=== PATIENT | female | born 1940 | race Caucasian/White ===

== ENCOUNTER 2018-08-17 07:49 | Inpatient (IN) | payer MEDICARE ==
[~2018-08-17] VITALS: Ht 152.4 cm; Wt 57.2 kg
--- NOTE | ~2018-08-17 | MORECARE ---
CASE MANAGEMENT DISCHARGE SUMMARY PATIENT: SEYMOUR AMIN UNIT: [id number] ADM DATE: 08/17/18 AGE: 78 : 41 SEX: F ROOM/BED: D.2229 AUTHOR: LUBNA ADAMS PHYSICIAN: REFERRING PHYSICIAN: TANIKA ERAZO MD DATE OF SERVICE: 08/20/18 Discharge Plan Patient Name: SEYMOUR AMIN Facility: [facility]:[place] : 1940 Planned Disposition: Home Anticipated Discharge Date: Discharge Date: Expected LOS: Initial Reviewer: [id number] Initial Review Date: 08/19/2018 Generated: 08/20/18 5:32 pm Comments DCP- Discharge Planning Updated by [email or web address]: Danelle Lauren on 08/20/18 3:[address] Patient Name: SEYMOUR AMIN Encounter No: [id number] : 1940 Primary Insurance: [facility] MEDICARE SOLUTIONS Anticipated DC Date: Planned Disposition: Home External Planned Provider: : DCP follow-up note: Patient and family in agreement with discharge plan. Daughter is at bedside and agrees with discharge. She will take her home to [facility]. Declines need for HHS. No changes to plan. Case management will follow and assist as needed. Danelle Lauren DCP- Discharge Planning Updated by [email or web address]: Danelle Tenoriodarwin on 08/19/18 8:[address] Patient Name: SEYMOUR AMIN Admission Status: ER Accout number: [id number] Admission Date: 08-17-2018 : 1940 Admission Diagnosis: Attending: TANIKA ERAZO Current LOS: 2 Anticipated DC Date: Planned Disposition: Home Primary Insurance: [employer] MEDICARE SOLUTIONS Discharge Planning Comments: CM met with patient to discuss discharge planning, she is alone in the room. She states she lives at [facility]. States she is independent with all ADL's. States she does not have any DME at home or need any DME. States she does not drive, she takes the [employer] bus that stops at [facility] when she needs to go somewhere. States she also has 4 children and her brother that will help her. States "my children are all good and help me when I need help." States her daughter, Eden, will take her to [place] on discharge. States she will be moving from there as soon as she can get packed and will be moving in with her daughter. No needs identified at this time. CM will continue to follow and assist with discharge planning/needs. Brake Tester: Danelle Tenoriodarwin DCPIA - Discharge Planning Initial Assessment Updated by [id number]: Danelle Aguilar on 08/19/18 9:39 am * Is the patient Alert and Oriented? Yes * How many steps to enter\\exit or inside your home? 0/0 * PCP Francisco Arteaga APN for Dr. Watt * Pharmacy [facility] on [address] * Preadmission Environment Home Alone * ADLs Independent * Equipment None * List name and contact numbers for known caregivers / representatives who currently or will assist patient after discharge: Eden Sanchez - daughter - [phone] * Verbal permission to speak to the caregivers and representatives has been obtained from the patient. Yes * Community resources currently utilized None * Additional services required to return to the preadmission environment? No * Can the patient safely return to the preadmission environment? Yes * Has this patient been hospitalized within the prior 30 days at any hospital? No Coverage Notice Reviewer: [id number] - Danelle Aguilar Notice Issued Date-Time: 08/20/2018 16:27 Notice Type: IM Discharge Notice Notice Delivered To: Patient Relationship to Patient: Self Bell Maker Name: Delivery Method: HAND - Hand Delivered Milly Days: Prior Verbal Notification: Recipient Understood Notice: Yes Recipient Signature: Yes Med Rec Note Co-signed by Attending: Coverage Notice Comment: IMM explained, signed, copy given, original placed in MR Last DP export: 08/19/18 8:44 a Patient Name: SEYMOUR AMIN Page 03861 at 1633 All edits/amendments must be made on the electronic document DICTATION DATE: 08/20/181631 MATCHBOOK MAKER: TIMO 08/20/181631 RPT#: [id number] DC DATE: STATUS: ADM IN [facility] [address] [place] [address] END OF REPORT
--- NOTE | ~2018-08-17 | MORECARE ---
CASE MANAGEMENT DISCHARGE SUMMARY PATIENT: SEYMOUR AMIN UNIT: [id number] ADM DATE: 08/17/18 AGE: 78 : 41 SEX: F ROOM/BED: D.2229 AUTHOR: LUBNA ADAMS PHYSICIAN: REFERRING PHYSICIAN: TANIKA ERAZO MD DATE OF SERVICE: 08/21/18 Discharge Plan Patient Name: SEYMOUR AMIN Facility: [facility]:[place] : 1940 Planned Disposition: Home Anticipated Discharge Date: Discharge Date: 08/20/2018 Expected LOS: 0 Initial Reviewer: [id number] Initial Review Date: 08/19/2018 Generated: 08/21/18 7:37 am DCP- Discharge Planning Updated by [id number]: Danelle Aguilar on 08/20/18 3:[address] Patient Name: SEYMOUR AMIN Encounter No: [id number] : 1940 Primary Insurance: [facility] MEDICARE SOLUTIONS Anticipated DC Date: Planned Disposition: Home External Planned Provider: : DCP follow-up note: Patient and family in agreement with discharge plan. Daughter is at bedside and agrees with discharge. She will take her home to [facility]. Declines need for HHS. No changes to plan. Case management will follow and assist as needed. Danelle Lauren DCP- Discharge Planning Updated by [email or web address]: Danelle Aguilar on 08/19/18 8:[address] Patient Name: SEYMOUR AMIN Admission Status: ER Accout number: [id number] Admission Date: 08-17-2018 : 1940 Admission Diagnosis: Attending: TANIKA ERAZO Current LOS: 2 Anticipated DC Date: Planned Disposition: Home Primary Insurance: [employer] MEDICARE SOLUTIONS Discharge Planning Comments: CM met with patient to discuss discharge planning, she is alone in the room. She states she lives at [facility]. States she is independent with all ADL's. States she does not have any DME at home or need any DME. States she does not drive, she takes the city bus that stops at [facility] when she needs to go somewhere. States she also has 4 children and her brother that will help her. States "my children are all good and help me when I need help." States her daughter, Eden, will take her to [facility] on discharge. States she will be moving from there as soon as she can get packed and will be moving in with her daughter. No needs identified at this time. CM will continue to follow and assist with discharge planning/needs. Education Courses Sales Representative: Danelle Lauren DCPIA - Discharge Planning Initial Assessment Updated by [email or web address]: Danelle Aguilar on 08/19/18 9:39 am * Is the patient Alert and Oriented? Yes * How many steps to enter\\exit or inside your home? 0/0 * PCP Francisco Arteaga APN for Dr. Wtat * Pharmacy [facility] [address] * Preadmission Environment Home Alone * ADLs Independent * Equipment None * List name and contact numbers for known caregivers / representatives who currently or will assist patient after discharge: Eden Sanchez - daughter - [phone] * Verbal permission to speak to the caregivers and representatives has been obtained from the patient. Yes * Community resources currently utilized None * Additional services required to return to the preadmission environment? No * Can the patient safely return to the preadmission environment? Yes * Has this patient been hospitalized within the prior 30 days at any hospital? No Coverage Notice Reviewer: [id number] - Danelle Aguilar Notice Issued Date-Time: 08/20/2018 16:27 Notice Type: IM Discharge Notice Notice Delivered To: Patient Relationship to Patient: Self Budget Report Clerk Name: Delivery Method: HAND - Hand Delivered Milly Days: Prior Verbal Notification: Recipient Understood Notice: Yes Recipient Signature: Yes Med Rec Note Co-signed by Attending: Coverage Notice Comment: IMM explained, signed, copy given, original placed in MR Last DP export: 08/20/18 3:32 p Patient Name: SEYMOUR AMIN Page 74286 at 0637 All edits/amendments must be made on the electronic document DICTATION DATE: 08/21/18635 RECORDINGS LIBRARIAN: TIMO 08/21/18635 RPT#: [id number] DC DATE:08/20/18 STATUS: DIS IN [facility] [address] [place] [address] END OF REPORT
--- NOTE | ~2018-08-17 | MORECARE ---
CASE MANAGEMENT DISCHARGE SUMMARY PATIENT: SEYMOUR AMIN UNIT: [id number] ADM DATE: 08/17/18 AGE: 78 : 41 SEX: F ROOM/BED: D.2229 AUTHOR: LUBNA ADAMS PHYSICIAN: REFERRING PHYSICIAN: TANIKA ERAZO MD DATE OF SERVICE: 08/19/18 Discharge Plan Patient Name: SEYMOUR AMIN Facility: [facility]:[place] : 1940 Planned Disposition: Home Anticipated Discharge Date: Discharge Date: Expected LOS: Initial Reviewer: [email or web address] Initial Review Date: 08/19/2018 Generated: 08/19/18 10:44 am Comments DCP- Discharge Planning Updated by [email or web address]: Danelle Aguilar on 08/19/18 8:[address] Patient Name: SEYMOUR AMIN Admission Status: ER Accout number: [id number] Admission Date: 08-17-2018 : 1940 Admission Diagnosis: Attending: TANIKA ERAZO Current LOS: 2 Anticipated DC Date: Planned Disposition: Home Primary Insurance: [facility] MEDICARE SOLUTIONS Discharge Planning Comments: CM met with patient to discuss discharge planning, she is alone in the room. She states she lives at [facility]. States she is independent with all ADL's. States she does not have any DME at home or need any DME. States she does not drive, she takes the city bus that stops at [facility] when she needs to go somewhere. States she also has 4 children and her brother that will help her. States "my children are all good and help me when I need help." States her daughter, Eden, will take her to [facility] on discharge. States she will be moving from there as soon as she can get packed and will be moving in with her daughter. No needs identified at this time. CM will continue to follow and assist with discharge planning/needs. Cardiac Exercise Physiologist: Danelle Aguilar DCPIA - Discharge Planning Initial Assessment Updated by [email or web address]: Danelle Aguilar on 08/19/18 9:39 am * Is the patient Alert and Oriented? Yes * How many steps to enter\\exit or inside your home? 0/0 * PCP Francisco Arteaga APN for Dr. Watt * Pharmacy [facility] on [address] * Preadmission Environment Home Alone * ADLs Independent * Equipment None * List name and contact numbers for known caregivers / representatives who currently or will assist patient after discharge: Eden Sanchez - daughter - [phone] * Verbal permission to speak to the caregivers and representatives has been obtained from the patient. Yes * Community resources currently utilized None * Additional services required to return to the preadmission environment? No * Can the patient safely return to the preadmission environment? Yes * Has this patient been hospitalized within the prior 30 days at any hospital? No Last DP export: 08/19/18 8:38 a Patient Name: SEYMOUR AMIN Page 69635 at 0944 All edits/amendments must be made on the electronic document DICTATION DATE: 08/19/18943 MEDICAL COLLECTOR: TIMO 08/19/18943 RPT#: [id number] DC DATE: STATUS: ADM IN [facility] [address] [place] [address] END OF REPORT
--- NOTE | ~2018-08-17 | MORECARE ---
CASE MANAGEMENT DISCHARGE SUMMARY PATIENT: SEYMOUR AMIN UNIT: [id number] ADM DATE: 08/17/18 AGE: 78 : 41 SEX: F ROOM/BED: D.2229 AUTHOR: LUBAN ADAMS PHYSICIAN: REFERRING PHYSICIAN: TANIKA ERAZO MD DATE OF SERVICE: 08/19/18 Discharge Plan Patient Name: SEYMOUR AMIN [facility] [facility] 1940 Planned Disposition: Home Anticipated Discharge Date: Discharge Date: Expected LOS: Initial Reviewer: [email or web address] Initial Review Date: 08/19/2018 Generated: 08/19/18 10:38 am Patient Name: SEYMOUR AMIN Page 86429 at 0938 All edits/amendments must be made on the electronic document DICTATION DATE: 08/19/1837 VIDEO GAME DEVELOPER: TIMO 08/19/1837 RPT#: [id number] DC DATE: STATUS: ADM IN [facility] [address] [place] [address] END OF REPORT
--- NOTE | ~2018-08-17 | CN ---
PATIENT NAME:SEYMOUR AMIN MEDICAL RECORD: [id number] : [birth year] LOCATION:D.MS Marcial2229 ADMIT DATE: 08/17/18 ACCOUNT: [id number] CONSULTING PHYSICIAN: YANN DICKINSON MD REFERRING PHYSICIAN: TANIKA ERAZO MD DATE OF CONSULTATION: 08/18/2018 IDENTIFYING DATA: The patient is 78 years old and she is admitted to the hospital secondary to shortness of breath and some abdominal pain. I am consulted because the patient apparently is having some trouble with a neighbor whom she thinks is stealing from her. The patient apparently has some history of anxiety and depression, but she minimizes these and they are not very prominent during the interview, but the business with a neighbor is very aggravating to her. She is convinced that her neighbor picks the lock on her door, comes into her apartment and steals cigarettes, her purse, and a roast she left out on the cabinet. She has stolen various other things. She has called the police several times. She has spoken with the account support manager about changing her lock or doing something about the neighbor. She says the neighbors doing this because she would not share her cigarettes with her. She also says the neighbor is probably into some sort of black magic or jew because when she takes something she will leave something else in its place that is meaningless. For example, she took her purse and then left 3/4 with a purse with sitting in the shape of a triangle. The patient denies neurovegetative depressive symptoms. She says she has no past psychiatric history. She does not drink alcohol or use drugs. MENTAL STATUS EXAMINATION: The patient is awake, alert and oriented to person, place, time, and situation. Her mood is euthymic. Her affect is appropriate. Thought processes are goal directed. Memory, concentration, and abstraction abilities are mildly impaired and she denies that she would seek to harm herself or others including the neighbors. She is angry with and she denies psychotic symptoms. 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 PLAN: This case represents something of a dilemma. Assuming the patient's telling me the truth, she has no history of mental illness, but she has what is clearly a delusional fixation on the neighbor. Certainly it is possible the neighbor could be picking the lock and coming into her house and taking these things, but it is probably not very likely, especially since the patient says she does not know how the neighbor always knows when she is gone and that she has waited for her, but she never comes in the house when she is there. The whole thing just sounds so improbable that it is almost certainly delusional. With the exception of this business with the neighbor, the patient is not showing any significant psychotic symptoms. She is not showing any significant mental health symptoms either. She is perfectly appropriate about everything else. She denies a history of substance abuse, mental illness and if she is demented, it would be in the mild range and usually delusions of this type are associated with pretty advanced dementias. I suppose it is possible she is demented and this is just an early manifestation, but she just does not seem to be impaired significantly. She recalls things quickly, she handles her own bills, she rides the bus, does not get lost on the schedule, manages her own insurance, takes herself to appointments. She says she is not having trouble with any of these things and there is no one here to contradict her. Under CONSULT REPORT [id number] SEYMOUR AMIN mental status exam, she does reasonably well. At this point, she does not want any treatment nor does she think she needs it. I would simply say that unless she becomes a danger to herself or this neighbor that this is probably one of those situations where there is just not a lot that I can do about it. I do not think she would be at all open to taking an antipsychotic medication that I prescribed, although perhaps her primary care physician might have an easier time doing this and I would recommend a low dose of Trilafon, say 2 mg at bedtime. Also, an outpatient evaluation by a neuropsychologist might help with pinning down if she is indeed in the early stages of a dementia. Also, if there is other history that is missing or that she has missed represented to me that I can certainly change my formulation as to how I see the case, but at this point, I do not see evidence of gross dysfunction or acute dangerousness and I think that there is probably not much that can be done. Perhaps moving her to another [facility] development would be reasonable, but certainly [facility] is by far the nicest in town. TRANSINT:[id number] Voice Confirmation ID: [id number] DOCUMENT ID: [id number] YANN DICKINSON MD at 0946 CC: [id number] DICTATION DATE: 08/18/18 1214 CAR CLERK PULLMAN: 08/18/18 1303 ADM IN [facility] [address] [place] [address]
[2018-08-17 08:30] LABS: BASOPHILS 0.3 % (0-2); EOSINOPHILS 1.1 % (0-7); HEMATOCRIT 41.7 % (36.0-48.0); HEMOGLOBIN 14.2 g/dL (12-16); IMMATURE GRANULOCYTES 0.9 % (0-5); LYMPHOCYTES 21.6 % (15-50); MCH 31.5 pg (26.0-34.0); MCHC 34.1 g/dL (31.0-37.0); MCV 92.5 fL (80.0-100.0); MEAN PLATELET VOLUME 9.3 fL (7.4-10.4); NEUTROPHILS 67.1 % (40-80); PLATELET COUNT 394 10x3/uL (130-400); RBC 4.51 10x6/uL (4.00-5.40); RDW 12.9 % (11.5-14.5); WBC 15.2 10x3/uL (4.8-10.8)
[2018-08-17 08:44] LABS: ALBUMIN 3.6 g/dL (3.4-5.0); ANION GAP 14.2 mmol/L (8-16); BILIRUBIN - TOTAL 0.2 mg/dL (0.2-1.3); CALCIUM 9.7 mg/dL (8.5-10.1); CREATININE - SERUM 1.1 mg/dL (0.6-1.3); MAGNESIUM - SERUM 1.8 mg/dL (1.8-2.4); POTASSIUM - SERUM 3.2 mmol/L (3.5-5.1)
[2018-08-17 08:54] LABS: UDS - AMPHET NEGATIVE QUAL (NEGATIVE); UDS - BARB NEGATIVE QUAL (NEGATIVE); UDS - BENZO NEGATIVE QUAL (NEGATIVE); UDS - COCAINE NEGATIVE QUAL (NEGATIVE); UDS - OPIATE NEGATIVE QUAL (NEGATIVE); UDS - PCP NEGATIVE QUAL (NEGATIVE); UDS - THC NEGATIVE QUAL (NEGATIVE)
[2018-08-17 09:15] LABS: APPEARANCE CLEAR (CLEAR); BILIRUBIN NEGATIVE (NEGATIVE); COLOR YELLOW (YELLOW); EPITHELIAL CELLS 0-5 /hpf (0-5); GLUCOSE NEGATIVE (NEGATIVE); KETONE NEGATIVE (NEGATIVE); NITRITE NEGATIVE (NEGATIVE); PROTEIN NEGATIVE (NEGATIVE); RED CELLS - URINE 0-5 /hpf (0-5); UROBILINOGEN NORMAL (NORMAL); WHITE CELLS - URINE 0-5 /hpf (0-5)
[2018-08-17] MEDS ORDERED: TRAZODONE HCL100 MG (10:08)
[2018-08-17] MEDS ORDERED: ZITHROMAX250 MG (10:08)
[2018-08-17] MEDS ORDERED: MEDROL DOSE PACK4 MG (10:09)
[2018-08-17 11:04] VITALS: BP 148/58
[2018-08-17 15:32] VITALS: BP 100/81
[2018-08-17 15:38] VITALS: BP 137/52
[2018-08-17 20:50] VITALS: BP 133/63
[2018-08-18 01:20] VITALS: BP 131/63
[2018-08-18 05:28] VITALS: BP 163/76
[2018-08-18 06:52] LABS: BASOPHILS 0 % (0-2); EOSINOPHILS 0 % (0-7); HEMATOCRIT 36.6 % (36.0-48.0); HEMOGLOBIN 12.3 g/dL (12-16); IMMATURE GRANULOCYTES 0.9 % (0-5); LYMPHOCYTES 5.9 % (15-50); MCH 30.8 pg (26.0-34.0); MCHC 33.6 g/dL (31.0-37.0); MCV 91.7 fL (80.0-100.0); MEAN PLATELET VOLUME 9.4 fL (7.4-10.4); MONOCYTES 2.1 % (2-11); NEUTROPHILS 91.1 % (40-80); PLATELET COUNT 354 10x3/uL (130-400); RBC 3.99 10x6/uL (4.00-5.40); RDW 12.8 % (11.5-14.5); WBC 20.8 10x3/uL (4.8-10.8)
[2018-08-18 07:32] LABS: ALBUMIN 2.9 g/dL (3.4-5.0); BILIRUBIN - TOTAL 0.24 mg/dL (0.2-1.3); CALCIUM 9.1 mg/dL (8.5-10.1); CARBON DIOXIDE 27.7 mmol/L (21.0-32.0); CREATININE - SERUM 0.9 mg/dL (0.6-1.3); PROTEIN - SERUM 6.9 g/dL (6.4-8.2)
[2018-08-18 07:33] LABS: ANION GAP 10.8 mmol/L (8-16); POTASSIUM - SERUM 4.5 mmol/L (3.5-5.1)
[2018-08-18 08:37] VITALS: BP 154/75
[2018-08-18 13:07] VITALS: BP 118/69
[2018-08-18 14:38] VITALS: BMI 24.6
[2018-08-18 16:55] VITALS: BP 157/77
[2018-08-18 20:00] VITALS: BP 137/68
[2018-08-19 05:00] VITALS: BP 165/76
[2018-08-19 06:29] LABS: BASOPHILS 0.1 % (0-2); EOSINOPHILS 0 % (0-7); HEMATOCRIT 37.7 % (36.0-48.0); HEMOGLOBIN 12.5 g/dL (12-16); IMMATURE GRANULOCYTES 0.8 % (0-5); LYMPHOCYTES 8.9 % (15-50); MCH 30.9 pg (26.0-34.0); MCHC 33.2 g/dL (31.0-37.0); MCV 93.1 fL (80.0-100.0); MEAN PLATELET VOLUME 9.7 fL (7.4-10.4); MONOCYTES 6.5 % (2-11); NEUTROPHILS 83.7 % (40-80); PLATELET COUNT 428 10x3/uL (130-400); RBC 4.05 10x6/uL (4.00-5.40); RDW 13.3 % (11.5-14.5); WBC 26.4 10x3/uL (4.8-10.8)
[2018-08-19 06:53] LABS: ALBUMIN 3.3 g/dL (3.4-5.0); ANION GAP 13.9 mmol/L (8-16); BILIRUBIN - TOTAL 0.2 mg/dL (0.2-1.3); CALCIUM 9.5 mg/dL (8.5-10.1); CARBON DIOXIDE 25.7 mmol/L (21.0-32.0); CREATININE - SERUM 0.9 mg/dL (0.6-1.3); POTASSIUM - SERUM 4.6 mmol/L (3.5-5.1); PROTEIN - SERUM 7.1 g/dL (6.4-8.2)
[2018-08-19 08:51] VITALS: BP 170/91
[2018-08-19 14:50] VITALS: BP 107/47
[2018-08-19 16:48] VITALS: BP 164/71
[2018-08-19 18:42] LABS: CKMB 1.4 U/L (0.0-3.6); CREATINE KINASE 84 UL (21-215)
[2018-08-19 19:35] LABS: TROPONIN-I 0.016 ng/mL (0.000-0.060)
[2018-08-19 21:13] VITALS: BP 127/57
[2018-08-20] VITALS: BP 145/57
[2018-08-20 00:30] LABS: CREATINE KINASE 69 UL (21-215)
[2018-08-20 00:35] LABS: TROPONIN-I < 0.017 ng/mL (0.000-0.060)
[2018-08-20 05:00] VITALS: BP 143/86
[2018-08-20 06:09] LABS: BASOPHILS 0.1 % (0-2); EOSINOPHILS 1.2 % (0-7); HEMATOCRIT 38.7 % (36.0-48.0); HEMOGLOBIN 12.8 g/dL (12-16); IMMATURE GRANULOCYTES 1.2 % (0-5); LYMPHOCYTES 28.3 % (15-50); MCH 31.1 pg (26.0-34.0); MCHC 33.1 g/dL (31.0-37.0); MCV 93.9 fL (80.0-100.0); MEAN PLATELET VOLUME 9.2 fL (7.4-10.4); MONOCYTES 7.6 % (2-11); NEUTROPHILS 61.6 % (40-80); RBC 4.12 10x6/uL (4.00-5.40); RDW 13.5 % (11.5-14.5)
[2018-08-20 06:19] LABS: PLATELET COUNT 327 10x3/uL (130-400); WBC 11.3 10x3/uL (4.8-10.8)
[2018-08-20 06:40] LABS: ALBUMIN 3.1 g/dL (3.4-5.0); ALKALINE PHOSPHATASE 77 U/L (46-116); BILIRUBIN - TOTAL 0.25 mg/dL (0.2-1.3); CALC OSMOLALITY 284 mosm/kg (275-300); CALCIUM 9.1 mg/dL (8.5-10.1); CARBON DIOXIDE 29.5 mmol/L (21.0-32.0); CHLORIDE - SERUM 106 mmol/L (98-107); CKMB 1.2 U/L (0.0-3.6); CREATINE KINASE 59 UL (21-215); GLUCOSE 91 mg/dL (74-106); POTASSIUM - SERUM 4.5 mmol/L (3.5-5.1); PROTEIN - SERUM 6.9 g/dL (6.4-8.2); SODIUM 143 mmol/L (136-145); UREA NITROGEN 13 mg/dL (7-18); eGFR NON AFRICAN AMERICAN 57 mL/min (90-120)
[2018-08-20 06:41] LABS: ALT (SGPT) 30 U/L (10-68); TROPONIN-I < 0.017 ng/mL (0.000-0.060)
[2018-08-20 09:43] VITALS: Ht 152.4 cm; Wt 57.2 kg
[2018-08-20 09:57] VITALS: BP 146/74
[2018-08-20 12:48] VITALS: BP 138/72
[2018-08-20] MEDS ORDERED: ZITHROMAX500 MG PO (16:50)
[2018-08-20 17:08] VITALS: BP 139/76
== END 2018-08-20 18:14 | disposition home or self-care (01) | DRG 194 ==
LOC: D.ER 07:49 → D.MS 09:21 → D.SDCHOLD 08-18 17:07 → D.MS 08-18 17:11
PROVIDERS: Family Medicine; Internal Medicine Nephrology
DX: J18.9 Pneumonia, unspecified organism (principal); J90 Pleural effusion, not elsewhere classified; F17.203 Nicotine dependence unspecified, with withdrawal; G93.40 Encephalopathy, unspecified; F41.9 Anxiety disorder, unspecified; F29 Unspecified psychosis not due to a substance or known physiological condition; F43.29 Adjustment disorder with other symptoms; R00.0 Tachycardia, unspecified; I25.10 Atherosclerotic heart disease of native coronary artery without angina pectoris; E87.6 Hypokalemia; I73.9 Peripheral vascular disease, unspecified; N95.9 Unspecified menopausal and perimenopausal disorder

== ENCOUNTER 2018-09-09 14:49 | Inpatient (IN) | payer MEDICARE ==
[2018-09-09] VITALS (7 sets, daily range): BP systolic 91–152; BP diastolic 39–62
[~2018-09-09] VITALS: Ht 152.4 cm; Wt 70.3 kg
--- NOTE | ~2018-09-09 | MORECARE ---
CASE MANAGEMENT DISCHARGE SUMMARY PATIENT: SEYMOUR AMIN UNIT: [id number] ADM DATE: 09/09/18 AGE: 78 : 41 SEX: F ROOM/BED: D.0523 AUTHOR: LUBNA ADAMS PHYSICIAN: REFERRING PHYSICIAN: TAMMIE GAMBOA MD DATE OF SERVICE: 09/12/18 Discharge Plan Patient Name: SEYMOUR AMIN Facility: [facility]:[place] : 1940 Planned Disposition: Home Anticipated Discharge Date: 09/12/18 Discharge Date: 09/12/2018 Expected LOS: 3 Initial Reviewer: [email or web address] Initial Review Date: 09/12/2018 Generated: 09/12/18 6:26 pm Comments DCP- Discharge Planning Updated by [email or web address]: Farhan Reis on 09/12/18 4:[address] Patient Name: SEYMOUR AMIN Admission Status: ER Accout number: [id number] Admission Date: 09-09-2018 : 1940 Admission Diagnosis:URINARY TRACT INFECTION, SITE NOT SPECIFIED Attending: TAMMIE GAMBOA Current LOS: 3 Anticipated DC Date: 09-12-2018 Planned Disposition: Home Primary Insurance: [facility] MEDICARE SOLUTIONS Discharge Planning Comments: CM MET WITH PT IN ROOM TO DISCUSS DISCHARGE PLANNING AND NEEDS. PT REPORTS SHE WAS LIVING AT [facility] AND SOMEONE WAS STEALING FROM HER. PT LIVES ALONE BUT WILL BE MOVING IN AT HER DAUGTHERS TODAY AFTER DISCHARGE. PT REPORTS ALL OF HER THINGS HAVE BEEN MOVED TO HER DAUGHTERS HOME WHO WILL BE PICKING HER UP TODAY. PT WALKER WITH NO PROVIDER PREFERENCE. PT HAD NO OUTSIDE SERVICES ASSISTING IN THE HOME. CM DISCUSSED AVAILABILITY OF HOME HEALTH, REHAB SERVICES AND MEDICAL EQUIPMENT. PT DENIES DISCHARGE NEEDS, REPORTS HER DAUGHTER WILL PICK HER UP FOR DISCHARGE HOME. IMPORTANT MESSAGE FROM MEDICARE PROVIDED AND EXPLAINED. DISCHARGE ADDRESS IS ON [address] [place] WITH DAUGHTER, EZRA QUIROZ. NO DISCHARGE NEEDS NOTED. Disability Insurance Claim Examiner: Farhan Reis DCPIA - Discharge Planning Initial Assessment Updated by [id number]: Farhan Reis on 09/12/18 5:14 pm * Is the patient Alert and Oriented? Yes * How many steps to enter\exit or inside your home? NONE * PCP ADAM CULLEN APN [facility] * Pharmacy [facility] [address] * Preadmission Environment Home Alone * ADLs Independent * Equipment Walker * Other Equipment NO MEDICAL EQUIPMENT PROVIDER PREFERENCE * List name and contact numbers for known caregivers / representatives who currently or will assist patient after discharge: EZRA QUIROZ, DTR, * Verbal permission to speak to the caregivers and representatives has been obtained from the patient. N/A * Community resources currently utilized None * Please name any agencies selected above. NONE * Additional services required to return to the preadmission environment? No * Can the patient safely return to the preadmission environment? Yes * Has this patient been hospitalized within the prior 30 days at any hospital? Yes Coverage Notice Reviewer: [id number] Mumtaz Reis Notice Issued Date-Time: 09/12/2018 14:30 Notice Type: IM Discharge Notice Notice Delivered To: Patient Relationship to Patient: Bowling Ball Grader And Marker Name: Delivery Method: HAND - Hand Delivered Milly Days: Prior Verbal Notification: Recipient Understood Notice: Yes Recipient Signature: Yes Med Rec Note Co-signed by Attending: Coverage Notice Comment: Last DP export: 09/12/18 4:17 Patient Name: SEYMOUR AMIN Page 86766 at 1726 All edits/amendments must be made on the electronic document DICTATION DATE: 09/12/181724 COATING MACHINE OPERATOR HELPER: TIMO 09/12/181724 RPT#: [id number] DC DATE:09/12/18 STATUS: DIS IN [facility] [address] [place] [address] END OF REPORT
--- NOTE | ~2018-09-09 | MORECARE ---
CASE MANAGEMENT DISCHARGE SUMMARY PATIENT: SEYMOUR AMIN UNIT: [id number] ADM DATE: 09/09/18 AGE: 78 : 41 SEX: F ROOM/BED: D.[facility] AUTHOR: LUBNA ADAMS PHYSICIAN: REFERRING PHYSICIAN: TAMMIE GAMBOA MD DATE OF SERVICE: 09/12/18 Discharge Plan Patient Name: SEYMOUR AMIN Facility: [facility]:[place] : 1940 Planned Disposition: Home Anticipated Discharge Date: 09/12/18 Discharge Date: 09/12/2018 Expected LOS: 3 Initial Reviewer: [id number] Initial Review Date: 09/12/2018 Generated: 09/12/18 6:17 pm DCPIA - Discharge Planning Initial Assessment Updated by [id number]: Farhan Reis on 09/12/18 5:14 pm * Is the patient Alert and Oriented? Yes * How many steps to enter\exit or inside your home? NONE * PCP ADAM CULLEN APN [facility] * [facility] [address] * Preadmission Environment Home Alone * ADLs Independent * Equipment Walker * Other Equipment NO MEDICAL EQUIPMENT PROVIDER PREFERENCE * List name and contact numbers for known caregivers / representatives who currently or will assist patient after discharge: EZRA QUIROZ, DTR, * Verbal permission to speak to the caregivers and representatives has been obtained from the patient. N/A * Community resources currently utilized None * Please name any agencies selected above. NONE * Additional services required to return to the preadmission environment? No * Can the patient safely return to the preadmission environment? Yes * Has this patient been hospitalized within the prior 30 days at any hospital? Yes Coverage Notice Reviewer: [id number] - Farhan Reis Notice Issued Date-Time: 09/12/2018 14:30 Notice Type: IM Discharge Notice Notice Delivered To: Patient Relationship to Patient: Director Of Dementia Operations Name: Delivery Method: HAND - Hand Delivered Milly Days: Prior Verbal Notification: Recipient Understood Notice: Yes Recipient Signature: Yes Med Rec Note Co-signed by Attending: Coverage Notice Comment: Patient Name: SEYMOUR AMIN Page 51970 at 1717 All edits/amendments must be made on the electronic document DICTATION DATE: 09/12/181716 DIABETES TRAINER: TIMO 09/12/181716 RPT#: [id number] DC DATE:09/12/18 STATUS: DIS IN [facility] [address] [place] [address] END OF REPORT
[~2018-09-09 14:49] MED LIST: MEDROL DOSE PACK4 MG; TRAZODONE HCL100 MG; ZITHROMAX250 MG; ZITHROMAX500 MG PO
[2018-09-09 15:46] LABS: BASOPHILS 0.1 % (0-2); EOSINOPHILS 2.8 % (0-7); HEMATOCRIT 32.8 % (36.0-48.0); HEMOGLOBIN 10.9 g/dL (12-16); IMMATURE GRANULOCYTES 0.3 % (0-5); LYMPHOCYTES 14.8 % (15-50); MCH 30.6 pg (26.0-34.0); MCHC 33.2 g/dL (31.0-37.0); MCV 92.1 fL (80.0-100.0); MEAN PLATELET VOLUME 9.1 fL (7.4-10.4); MONOCYTES 5.1 % (2-11); NEUTROPHILS 76.9 % (40-80); RBC 3.56 10x6/uL (4.00-5.40); RDW 13.4 % (11.5-14.5); WBC 10.5 10x3/uL (4.8-10.8)
[2018-09-09 16:10] LABS: APTT 29.2 SECONDS (22.8-39.4); INR 1.1 (0.85-1.17); PROTIME 13.7 SECONDS (11.6-15.0)
[2018-09-09 16:13] LABS: PLATELET COUNT 207 10x3/uL (130-400)
[2018-09-09 16:14] LABS: ALBUMIN 3.1 g/dL (3.4-5.0); ALKALINE PHOSPHATASE 65 U/L (46-116); ALT (SGPT) 14 U/L (10-68); BILIRUBIN - TOTAL 0.33 mg/dL (0.2-1.3); CALC OSMOLALITY 271 mosm/kg (275-300); CARBON DIOXIDE 30.4 mmol/L (21.0-32.0); CHLORIDE - SERUM 101 mmol/L (98-107); CREATININE - SERUM 0.9 mg/dL (0.6-1.3); GLUCOSE 95 mg/dL (74-106); POTASSIUM - SERUM 3.2 mmol/L (3.5-5.1); PROTEIN - SERUM 6.3 g/dL (6.4-8.2); SODIUM 136 mmol/L (136-145); UREA NITROGEN 12 mg/dL (7-18); eGFR NON AFRICAN AMERICAN 64 mL/min (90-120)
[2018-09-09 16:27] LABS: CREATINE KINASE 81 UL (21-215); MAGNESIUM - SERUM 1.7 mg/dL (1.8-2.4)
[2018-09-09 16:33] LABS: TROPONIN-I < 0.017 ng/mL (0.000-0.060)
[2018-09-09 19:41] LABS: APPEARANCE HAZY (CLEAR); BILIRUBIN NEGATIVE (NEGATIVE); COLOR YELLOW (YELLOW); GLUCOSE NEGATIVE (NEGATIVE); KETONE NEGATIVE (NEGATIVE); NITRITE NEGATIVE (NEGATIVE); PROTEIN NEGATIVE (NEGATIVE); UROBILINOGEN NORMAL (NORMAL)
[2018-09-09 19:42] LABS: BACTERIA FEW /hpf (NONE SEEN); EPITHELIAL CELLS OCC /hpf (0-5); RED CELLS - URINE 0-5 /hpf (0-5); WHITE CELLS - URINE 25-50 /hpf (0-5)
[2018-09-10] VITALS (17 sets, daily range): BP systolic 99–156; BP diastolic 40–65; BMI 22.2
[2018-09-10 06:55] LABS: BASOPHILS 0.1 % (0-2); EOSINOPHILS 3.1 % (0-7); HEMATOCRIT 32.5 % (36.0-48.0); HEMOGLOBIN 10.7 g/dL (12-16); IMMATURE GRANULOCYTES 0.1 % (0-5); LYMPHOCYTES 29.1 % (15-50); MCH 30.6 pg (26.0-34.0); MCHC 32.9 g/dL (31.0-37.0); MCV 92.9 fL (80.0-100.0); MEAN PLATELET VOLUME 9.2 fL (7.4-10.4); MONOCYTES 7.4 % (2-11); NEUTROPHILS 60.2 % (40-80); PLATELET COUNT 201 10x3/uL (130-400); RDW 13.7 % (11.5-14.5)
[2018-09-10 06:56] LABS: WBC 7.3 10x3/uL (4.8-10.8)
[2018-09-10 07:23] LABS: ALBUMIN 2.7 g/dL (3.4-5.0); BILIRUBIN - TOTAL 0.26 mg/dL (0.2-1.3); CALCIUM 7.8 mg/dL (8.5-10.1); CARBON DIOXIDE 24.6 mmol/L (21.0-32.0); CREATININE - SERUM 0.9 mg/dL (0.6-1.3); POTASSIUM - SERUM 3.6 mmol/L (3.5-5.1); PROTEIN - SERUM 5.8 g/dL (6.4-8.2)
[2018-09-10] MEDS ORDERED: COREG 3.1253.125 MG PO (20:45)
[2018-09-10] MEDS ORDERED: ASPIRIN EC81 M1 PO (20:46)
[2018-09-11 02:21] VITALS: Ht 152.4 cm; Wt 70.3 kg
[2018-09-11 03:34] VITALS: BP 138/61
[2018-09-11 06:16] LABS: BASOPHILS 0.2 % (0-2); EOSINOPHILS 3.9 % (0-7); HEMATOCRIT 31.3 % (36.0-48.0); HEMOGLOBIN 10.2 g/dL (12-16); IMMATURE GRANULOCYTES 0.5 % (0-5); LYMPHOCYTES 26.4 % (15-50); MCH 30.5 pg (26.0-34.0); MCHC 32.6 g/dL (31.0-37.0); MCV 93.7 fL (80.0-100.0); MEAN PLATELET VOLUME 9.8 fL (7.4-10.4); MONOCYTES 8.9 % (2-11); NEUTROPHILS 60.1 % (40-80); PLATELET COUNT 222 10x3/uL (130-400); RBC 3.34 10x6/uL (4.00-5.40); RDW 13.8 % (11.5-14.5); WBC 6.6 10x3/uL (4.8-10.8)
[2018-09-11 06:57] LABS: ALBUMIN 2.9 g/dL (3.4-5.0); ALKALINE PHOSPHATASE 61 U/L (46-116); ALT (SGPT) 13 U/L (10-68); CALC OSMOLALITY 282 mosm/kg (275-300); CALCIUM 7.9 mg/dL (8.5-10.1); CARBON DIOXIDE 25.5 mmol/L (21.0-32.0); CHLORIDE - SERUM 109 mmol/L (98-107); CREATININE - SERUM 0.7 mg/dL (0.6-1.3); GLUCOSE 87 mg/dL (74-106); POTASSIUM - SERUM 3.7 mmol/L (3.5-5.1); SODIUM 143 mmol/L (136-145); UREA NITROGEN 9 mg/dL (7-18); eGFR NON AFRICAN AMERICAN 86 mL/min (90-120)
[2018-09-11 08:22] VITALS: BP 153/51
[2018-09-11 11:39] VITALS: BP 151/57
[2018-09-11 15:30] VITALS: BP 149/79
[2018-09-11 19:45] VITALS: BP 136/65
[2018-09-11 23:45] VITALS: BP 150/57
[2018-09-12 03:55] VITALS: BP 177/73
[2018-09-12 05:06] LABS: BASOPHILS 0.3 % (0-2); EOSINOPHILS 5.6 % (0-7); HEMATOCRIT 29.5 % (36.0-48.0); HEMOGLOBIN 9.7 g/dL (12-16); IMMATURE GRANULOCYTES 0.3 % (0-5); LYMPHOCYTES 28.8 % (15-50); MCH 30.2 pg (26.0-34.0); MCHC 32.9 g/dL (31.0-37.0); MCV 91.9 fL (80.0-100.0); MEAN PLATELET VOLUME 9.7 fL (7.4-10.4); MONOCYTES 8.4 % (2-11); NEUTROPHILS 56.6 % (40-80); PLATELET COUNT 214 10x3/uL (130-400); RBC 3.21 10x6/uL (4.00-5.40); RDW 13.7 % (11.5-14.5); WBC 6.8 10x3/uL (4.8-10.8)
[2018-09-12 05:16] LABS: APPEARANCE CLEAR (CLEAR); BILIRUBIN NEGATIVE (NEGATIVE); COLOR YELLOW (YELLOW); GLUCOSE NEGATIVE (NEGATIVE); KETONE NEGATIVE (NEGATIVE); NITRITE NEGATIVE (NEGATIVE); PROTEIN NEGATIVE (NEGATIVE); UROBILINOGEN NORMAL (NORMAL)
[2018-09-12 05:28] LABS: ALBUMIN 2.7 g/dL (3.4-5.0); ALKALINE PHOSPHATASE 51 U/L (46-116); ALT (SGPT) 9 U/L (10-68); BILIRUBIN - TOTAL 0.26 mg/dL (0.2-1.3); CALC OSMOLALITY 281 mosm/kg (275-300); CALCIUM 7.7 mg/dL (8.5-10.1); CARBON DIOXIDE 23.4 mmol/L (21.0-32.0); CHLORIDE - SERUM 111 mmol/L (98-107); CREATININE - SERUM 0.7 mg/dL (0.6-1.3); GLUCOSE 85 mg/dL (74-106); PROTEIN - SERUM 5.7 g/dL (6.4-8.2); SODIUM 143 mmol/L (136-145); UREA NITROGEN 6 mg/dL (7-18); eGFR NON AFRICAN AMERICAN 86 mL/min (90-120)
[2018-09-12 08:35] VITALS: BP 105/81
[2018-09-12 11:34] VITALS: BP 166/99
[2018-09-12] MEDS ORDERED: KEFLEX500 MG PO (13:03)
== END 2018-09-12 15:03 | disposition home or self-care (01) | DRG 689 ==
LOC: D.ER 14:49 → D.EDHOLD 20:17 → D.M2 20:17
PROVIDERS: Emergency Medicine; Family Medicine
DX: N39.0 Urinary tract infection, site not specified (principal); G93.41 Metabolic encephalopathy; F17.213 Nicotine dependence, cigarettes, with withdrawal; E44.1 Mild protein-calorie malnutrition; E87.6 Hypokalemia; W19.XXXA Unspecified fall, initial encounter; Z91.81 History of falling; J44.9 Chronic obstructive pulmonary disease, unspecified; I73.9 Peripheral vascular disease, unspecified; F32.9 Major depressive disorder, single episode, unspecified

== ENCOUNTER 2019-04-03 05:30 | Day surgery (SDC) | payer MEDICARE, MEDICAID ==
[2019-04-02 11:34] LABS: HEMATOCRIT 39.4 % (36.0-48.0); HEMOGLOBIN 13.1 g/dL (12-16); MCH 30.2 pg (26.0-34.0); MCHC 33.2 g/dL (31.0-37.0); MCV 90.8 fL (80.0-100.0); MEAN PLATELET VOLUME 9.1 fL (7.4-10.4); RBC 4.34 10x6/uL (4.00-5.40); RDW 13.8 % (11.5-14.5); WBC 10.8 10x3/uL (4.8-10.8)
[2019-04-03] VITALS (27 sets, daily range): BP systolic 16–152; BP diastolic 52–102; BMI 23.6; BMI 23.4
[~2019-04-03 05:30] MED LIST changes: +ASPIRIN EC81 M1 PO; +ATIVAN1 MG PO; +Aricept PO; +Bactroban ointment TOPICAL; +CELEXA20 MG PO; +COREG 3.1253.125 MG PO; +CRESTOR5 MG PO; +FERROUS SULFAT325 MG PO; +FLORAJEN3 CAPS460 MG PO; +KEFLEX500 MG PO; +VESICARE5 MG PO; +VITAMIN D5000 UNIT PO
--- NOTE | 2019-04-03 14:18 | NUR ---
SPOKE WITH [facility] ICU CASE MANAGEMENT ABOUT DOMESTIC ISSUES WITH PT AND FAMILY. STATES SHE WILL FOLLOW UP ON IT.
--- NOTE | 2019-04-03 14:37 | NUR ---
1100 PT RECIEVED IN THE ICU VIA BED FROM THE RECOVERY ROOM POST OP.. REPORT RECIEVED AND PT PLACED ON ICU MONITORING.. PT IS LETHARGIC BUT APPROPRIATE IN RESPONSES TO QUESTIONS AND COMMANDS THRU OUT ASSESMENT.. PT STATES SHE IS SOB.. AND HAVING A HARD TIME BREATHING.. O2 ON AND RR NURSE CARIDAD STATES SHE HAS BEEN C/O OF THIS.. 1200 CONTINUES TO C/O NOT BEING ABLE TO BREATH RT CALLED AND ABG DONE.. 1215 ABG WNL PT IS INTERMITTENTLY SLEEPING SAT REMAINS 96-98% ON ROOM AIR.. 1300 EASILY ROUSED AND APPROPRIATE IN RESPONSES AND NEURO CHECKES.. 1400 WIHTOUT CHNAGES..
--- NOTE | 2019-04-03 15:22 | NUR ---
1515 PT REMAINS SLEEPING HOB ELEVATEDEASILY ROUSED RESPIRATIONS EVEN AND DEEP
--- NOTE | 2019-04-03 17:27 | NUR ---
1720 DIALYSIS IN ROOM SETTING UP FOR TX..
--- NOTE | 2019-04-03 17:32 | NUR ---
1630 FAMILY AT BEDSIDE UPDATE IS GIVEN... ICE CHIPS TAEN BY PATIENT WITHOUT DIFFICULTY 1715 CLEAR LIQUID DIET TRAY SERVED TO PATIENT FAMILY REMAINS AT THE BEDSIDE... ASSISTING PATIENT WITH MEAL
--- NOTE | 2019-04-03 18:29 | NUR ---
1800 LIQUID TRAY SERVED TO PT SHE FED SELF FAMILY GONE.. PT IS C/O HER RIGHT EYE FEELING IF SOMETHING IS IN IT. COMPRESS GIVEN WILL PASS ON IN REPORT AND MONITOR
--- NOTE | 2019-04-03 19:00 | NUR ---
PT SITTING UP IN BED WITH HOB 90 DEGREES. IV INFUSING D5 1/2NS @ 50. PT TOLERATING CLEAR LIQUIDS AND SWALLOWING WITHOUT DIFFICULTY. INCISION TO LEFT NECK CDI. COMPLAINS OF IRRITATION TO RIGHT EYE. DENIES OTHER NEEDS. PROVIDED PT WITH MORE WATER, ENCOURAGED TO VOID. BED LOWEST POSITION, SRX2, CL IN REACH. WILL CTM
--- NOTE | 2019-04-03 21:00 | NUR ---
PT SITTING UP IN BED WITHOUT DISTRESS, ALERT AND ORIENTED. STATED PAIN 9/10, GAVE NORCO ORDERED. UPON REASSESSMENT, PT PAIN 7/10. DENIES NEEDS. CL IN REACH, SRX2, WILL CTM
--- NOTE | 2019-04-03 23:00 | NUR ---
PT SITTING UP IN BED WITHOUT DISTRESS. ASSISTED TO BEDSIDE COMMODE, VOIDED 300ML WITHOUT DIFFICULTY. PT DOES HAVE SLIGHT BALANCE PROBLEMS. STATES INCISIONAL PAIN 4/10 AT THIS TIME. PT ASSISTED BACK TO BED, DENIES OTHER NEEDS. SCDS ON. CL IN REACH, WILL CTM
[2019-04-04] VITALS (23 sets, daily range): BP systolic 92–184; BP diastolic 64–109
--- NOTE | 2019-04-04 01:00 | NUR ---
PT SITTING UP IN BED WITHOUT DISTRESS, ALERT AND ORIENTED X4. ASSISTED PT TO BEDSIDE COMMODE TO VOID AND BACK TO BED. STATES PAIN 3/10 AT THIS TIME. DENIES NEEDS. CL IN REACH, WILL CTM
--- NOTE | 2019-04-04 03:00 | NUR ---
PT LYING IN BED RESTING WITH EYES CLOSED, WITHOUT DISTRESS. BREATHING EVEN, UNLABORED. CL IN REACH, WILL CTM
--- NOTE | 2019-04-04 05:00 | NUR ---
PT SITTING UP IN BED WITHOUT DISTRESS, BREATHING EVEN AND UNLABORED. STATES SHE DOES HAVE SORE THROAT. ASSISTED PT TO BEDSIDE COMMODE TO VOID AND BACK TO BED. PERFORMED CHG BATH, CHANGED LINENS. PROVIDED PT WITH WATER. DENIES OTHER NEEDS. PT REFUSES TO PUT SCDS BACK ON AT THIS TIME, STATES "MAYBE LATER." CL IN REACH, SRX2, WILL CTM
--- NOTE | 2019-04-04 05:54 | NUR ---
PT SITTING IN BED WATCHING TV IN NO APPARENT DISTRESS, NO VISITORS PRESENT AT THIS TIME, CALL LIGHT IN REACH.
--- NOTE | 2019-04-04 07:40 | NUR ---
PATIENT AWAKE AND ALERT, KNOW WHERE SHE IS, WHY SHE HERE AND WHAT DATE, MONTH AND YEAR. THINKS HER PULSE OX IS FOR THE TV. AND TV REMOTE DOES NOT WORK. COOPERATIVE AND PLEASANT. COFFEE SERVED. STATES HER LEFT SIDE HURTS MEANING HER NECK AND CHEST AND THROAT HURT. EXPLAINED THIS IS NORMAL. STATES SHE CAN SWALLOW BUT IT IS DIFFICULT. NO PROBLEMS SWALLOWING COFFEE.
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
--- NOTE | 2019-04-04 08:30 | NUR ---
up to bsc. soft collar applied voiding clear yellow urine
--- NOTE | 2019-04-04 09:00 | NUR ---
cheeros served for breakfast with orange juice per patient request. removed pulse ox while eating. patient states i don't want to watch tv right now anyway.
--- NOTE | 2019-04-04 09:32 | NUR ---
patient with very short term memory, will laugh at herself, and know she forgot. when asked not to stand without nurse in room. patient stood up when nurse enter room she laugh. and states it was just habit. had to be reminded to pull her panties down before sitting on bsc. pleasant
--- NOTE | 2019-04-04 11:00 | NUR ---
LUNCH TRAY SERVED ATE WELL. NO DISTRESS. DENIES ANY NUMBNESS OR TINGLING
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
--- NOTE | 2019-04-04 14:00 | NUR ---
WORKING A PUZZLE BOOK. IV SWOLLEN. DC'D PATIENT TAKING PO FLUIDS WELL. IV WAS NOT RESTARTED. PATIENT TOLERATED WELL.
--- NOTE | 2019-04-04 16:17 | NUR ---
WATCHING TV AND DOING HER PUZZLE BOOK. NO CHANGE IN INCISION ON RIGHT NECK. STILL SLIGHTLY SWOLLOW AND BRUISED. PATIENT DENIES PAIN. MONITOR SR. NO DISTRESS.
--- NOTE | 2019-04-04 17:28 | NUR ---
SUPER TRAY SERVED ATE 80%. NO DISTRESS. STANDING AT BEDSIDE. SOME IMPROVMENT IN GAIT. NO DISTRESS. NO CHANGE IN NECK INCISION.
--- NOTE | 2019-04-04 19:20 | NUR ---
Received patient resting in bed with eyes open, assessment completed per flowsheet. Patient AO x4, calm and cooperative. S1/S2 noted NSR on telemetry, rythmic and regular. Breathing is even/unlabored on room air with O2 sat 96%, lung sounds clear throughout. Abdomen is round/soft with bowel sounds active x4, non-tender. Patient ambulates to bedside with standby assist, clear yellow urine noted. All pulses palpable with cap refill < 3 sec, skin warm/dry. C/O incisional neck pain 2/10 with neck support in use, will provide pain medication at request. No further needs at this time, see flowsheet for details. All VSS and will continue to monitor.
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
--- NOTE | 2019-04-04 23:10 | NUR ---
Reassessment completed per flowsheet, no changes noted from previous assessment. S1/S2 noted NSR on telemetry with HR 69, rythmic and regular. Breathing is even/unlabored on room air with O2 sat 96%, lung sounds clear throughout. All pulses palpable with cap refill < 3 sec, skin warm/dry. No difficulties breathing/swallowing noted, neck support in use. Denies pain or other needs at this time, see flowsheet for details. All VSS and will continue to monitor.
[2019-04-05] VITALS (23 sets, daily range): BP systolic 105–164; BP diastolic 54–94
--- NOTE | 2019-04-05 01:00 | NUR ---
Patient assisted to bedside commode at request, clear yellow urine noted. Repositioned in bed, denies pain or other needs at this time and will continue to monitor.
--- NOTE | 2019-04-05 02:47 | NUR ---
Reassessment completed per flowsheet, no changes noted from previous assessment. S1/S2 noted NSR on telemetry with HR 71, rythmic and regular. Breathing is even/unlabored on room air with O2 sat 97%, lung sounds clear throughout. L anterior neck incision dressing CDI, no breathing/swallowing difficulties noted. All pulses palpable with cap refill < 3 sec, skin warm/dry. Denies pain or other needs at this time, see flowsheet for details. All VSS and will continue to monitor.
--- NOTE | 2019-04-05 08:00 | NUR ---
BREAKFAST SERVED. AWAKES EASILY SKIN WARM AND DRY. NO DISTRESS. DIFFICULTY GETTING HER LEGS TO MOVE THIS MORNING. NEEDED ASSISTANCES.LEFT NECK WITH LESS SWELLING. BRUISING NOTED. NOT HURTING TOO MUCH.
--- NOTE | 2019-04-05 10:00 | NUR ---
ATE FAIR AT BREAKFAST. PHYSICAL THERAPY HERE NO CHANGE
--- NOTE | 2019-04-05 12:00 | NUR ---
LUNCH SERVED ATE FAIR. NO DISTRESS. NO CHANGE IN NECK BROTHER HERE TO VISIT
--- NOTE | 2019-04-05 14:00 | NUR ---
resting well. no distress
--- NOTE | 2019-04-05 16:00 | NUR ---
complainting of pain in neck. pain meds given. sitting on side of bed.
--- NOTE | 2019-04-05 17:00 | NUR ---
super tray served. no distress
--- NOTE | 2019-04-05 19:15 | NUR ---
Received patient resting in bed with eyes open, assessment completed per flowsheet. L anterior neck incision dresing CDI, well approximated. S1/S2 noted NSR on telemetry with HR 66, rythmic and regular. Breathing is even/unlabored on room air with O2 sat 98%, lung sounds clear bilateral upper and mid with diminished lower. Abdomen is round/soft with bowel sounds active x4, non-tender. Patient utilizes bedside commode with standby assist, no reported difficulties. All pulses palpable with cap refill < 3 sec, skin warm/dry. Denies pain or other needs at this time, see flowsheet for details. All VSS and will continue to monitor.
--- NOTE | 2019-04-05 21:00 | NUR ---
HS meds given without difficulty, patient resting in bed with eyes closed. Anterior neck incision well approximated, no difficulty breathing/swallowing noted. Denies pain or other needs at this time, all VSS and will continue to monitor.
--- NOTE | 2019-04-05 23:10 | NUR ---
Reassessment completed per flowsheet, no changes noted from previous assessment. S1/S2 noted NSR on telemetry with HR 66, rythmic and regular. Breathing is even/unlabored on room air with O2 sat 97%, lung sounds clear throughout. All pulses palpable with cap refill < 3 sec, skin warm/dry. Denies pain or other needs at this time, see flowsheet for details. All VSS and will continue to monitor.
[2019-04-06] VITALS (11 sets, daily range): BP systolic 111–158; BP diastolic 57–86; BMI 22.1
--- NOTE | 2019-04-06 01:10 | NUR ---
Patient sleeping in bed with eyes closed, no s/s of distress at this time. Denies pain or other needs, all VSS and will continue to monitor.
--- NOTE | 2019-04-06 03:10 | NUR ---
Reassessment completed per flowsheet, no changes noted from previous assessment. L anterior neck incision well approximated, no difficulties breathing/swallowing noted. S1/S2 noted NSR on telemetry with HR 74, rythmic and regular. Breathing is even/unlabored on room air with O2 sat 96%, lung sounds clear throughout. All pulses palpable with cap refill < 3 sec, skin warm/dry. C/O R shoulder pain 4/10, repositioned with some stated relief and will provide PRN medication at request. Denies further needs at this time, see flowsheet for details. All VSS and will continue to monitor.
--- NOTE | 2019-04-06 05:05 | NUR ---
Patient sleeping in bed with eyes closed, no s/s of distress at this time. L anterior neck incision well approximated, no difficulty swallowing/breathing noted. No further needs and will continue to monitor.
--- NOTE | 2019-04-06 07:15 | NUR ---
REPORT RECIEVED, SHIFT ASSESSMENT COMPLETE, PT IS ALERT AND ORIENTED, C/O OF NECK PAIN 04/22, NO OTHER NEEDS AT THIS TIME, VSS, CALL LIGHT IN REACH
--- NOTE | 2019-04-06 09:26 | NUR ---
PT RESTING AT THIS TIME, DENIES ANY NEEDS, WILL CON'T TO MONITOR
--- NOTE | 2019-04-06 09:40 | NUR ---
Rehab Note- Acute Inpatient Rehab prescreen order received. The patient has [facility] insurance and will require a PreAuth prior to an acute inpatient rehab stay. OT Eval pending. Will begin PreAuth process. Thank you for this referral! Alva Conteh RN Clinical Liaison, [facility] Rehab
--- NOTE | 2019-04-06 11:00 | NUR ---
UPDATE CALLED TO LOU BOOKER TO TRANSFER MED SURG
--- NOTE | 2019-04-06 13:15 | NUR ---
PT AT BEDSIDE, PT WALKED AROUND UNIT,
--- NOTE | 2019-04-06 15:07 | NUR ---
REPORT CALLED TO TIFFANY ON MED SURG
--- NOTE | 2019-04-06 15:39 | NUR ---
PT TRANSFERRED TO [id number]
--- NOTE | 2019-04-06 16:05 | NUR ---
PATIENT RECEIVED TO ROOM 2239. ALERT AND ORIENTED X 3. LUNGS CLEAR BILATERALLY IN ALL JAMES. HEART SOUND S1 AND S2 HEARD IN ALL JAMES. BOWEL SOUNDS ACTIVE X 4. SKIN INTACT WITHOUT REDNESS. BRACE IN PLACE TO NECK. BED LOW. CALL HEATH AND PERSONAL ITEMS IN REACH. FALL PRECAUTIONS IN PLACE. DENIES PAIN. DENIES NEEDS. WILL CONTINUE TO MONITOR.
--- NOTE | 2019-04-06 16:11 | NUR ---
UNABLE TO TRANSFER PATIENT IN COMPUTER TO MED SURG FLOOR. SUICIDE SCREENING COMPLETE ON MED SURG FLOOR.
--- NOTE | 2019-04-06 17:00 | NUR ---
PHARMACY CALLED ABOUT EYE OINTMENT NOT IN [place]. STATED WILL BRING.
--- NOTE | 2019-04-06 18:14 | NUR ---
RESTING IN BED. DENIES PAIN. DENIES NEEDS. CALL HEATH AND PERSONAL ITEMS IN REACH.
--- NOTE | 2019-04-06 19:15 | NUR ---
ASSISTED UP TO BSC. BM NOTED. ALERT AND ORIENTED X4. RESP EVEN AND NONLABORED. SOFT C-COLLAR IN USE. RATES PAIN IN NECK 6. NONPROD COUGH NOTED. NO IV ACCESS. GAIT UNSTEADY. EILEEN ALARM IN USE FOR PT SAFETY. CL IN REACH.
--- NOTE | 2019-04-06 20:40 | NUR ---
MEDICATED WITH NORCO FOR C/O PAIN IN NECK. CL IN REACH.
[2019-04-07] VITALS: BP 123/78
[2019-04-07 04:00] VITALS: BP 166/82
--- NOTE | 2019-04-07 05:00 | NUR ---
HAS SLEPT WELL THIS SHIFT. NO DISTRESS. LYING IN BED WITH EYES CLOSED. CL IN REACH. EILEEN ALARM IN USE.
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
[2019-04-07 09:25] VITALS: BP 172/71
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
[2019-04-07 13:10] VITALS: BP 150/77
--- NOTE | 2019-04-07 14:24 | NUR ---
OT NOTE: PT REFUSED IN AM, HOWEVER, IN PM, PT FEELING MUCH BETTER; FREQ CUES OF REDIRECTION REQUIRED DURING ADLS. PT IS INDEP WITH FEEDING; MIN ASSIST WITH TOILETING; GROOMING WITH SET UP AT BEDSIDE. AMB IN ROOM WITH MIN ASSIST AND DECREASED BALANCE; MIN ASSIST WITH TRANSFERS TO CHAIR AND BED. DECREASED SAFETY AWARENESS NOTED. JOAQUÍN GOOD, OTR/L
--- NOTE | 2019-04-07 14:52 | NUR ---
Rehab Note- Received call from Edith with [facility] stated that their medical delivery driver had denied the patient an inpatient acute rehab stay but would approve a SNF stay- asked about followin Medicare 3 midnight rule- she was uncertain of whether that was the case with her [facility]. She stated that a peer to peer can be set up prior to 1500 on 04/08/19, by calling Edith @ [phone], her Ref #[id number]. Spoke with ASHER Mcclendon. Thank you for this referral! Alva Conteh RN Clinical Liaison, [facility]
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
[2019-04-07 17:30] VITALS: BP 143/74
[2019-04-07 20:00] VITALS: BP 123/43
[2019-04-08] VITALS: BP 179/78
[2019-04-08 04:00] VITALS: BP 170/84
--- NOTE | 2019-04-08 08:16 | NUR ---
RESTING IN BED. ALERT AND ORIENTED X 3. LUNGS CLEAR BILATERALLY IN ALL JAMES. HEART SOUNDS S1 AND S2 HEARD IN ALL JAMES. BOWEL SOUNDS ACTIVE X 4. SKIN INTACT WITHOUT REDNESS. STERISTRIPS X 2 NOTED TO LEFT NECK. REFUSES TO WEAR CERVICAL COLLAR. NO IV. FALL PRECAUTIONS IN PLACE. BED LOW. CALL HEATH AND PERSONAL ITEMS IN REACH. DENIES PAIN. DENIES NEEDS. WILL CONTINUE TO MONITOR.
[2019-04-08 08:35] VITALS: BP 182/84
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
--- NOTE | 2019-04-08 11:09 | NUR ---
RESTING IN BED. DENIES PAIN. DENIES NEEDS. WILL CONTINUE TO MONITOR.
[2019-04-08 12:49] VITALS: BP 152/67
--- NOTE | 2019-04-08 13:31 | NUR ---
OT NOTE: PT PERFORMED WELL TODAY. PERFORMED BED MOB WITH CGA; SIT OT STAND WITH MIN ASSIST; AMB WITH HYDRAMATIC MECHANIC.. CONT TO EXHIBIT OCCASSIONAL LOB DURING AMB IN ROOM. SIMPLE GROOMING AND BATHING WITH MIN/SBA. INDEP WITH FEEDING; TOILETING WITH MIN ASSIST. JOAQUÍN GOOD, OTR/L
[2019-04-08 16:07] VITALS: BP 169/61
--- NOTE | 2019-04-08 17:38 | NUR ---
SITTING IN BED. DENIES PAIN. DENIES NEEDS.
[2019-04-08 20:00] VITALS: BP 159/67
--- NOTE | 2019-04-08 21:03 | NUR ---
PT ALERT X 4. BREATH SOUNDS CLEAR BILAT. INCISION TO LEFT ANTERIOR NECK, WELL APPROXIMATED. NO IV ACCESS AT THIS TIME. PT REPORTING PAIN OF 8/10, MEDICATED PER ORDERS, WILL MONITOR. BED LOW, CALL LIGHT IN REACH. NO OTHER NEEDS AT THIS TIME.
[2019-04-09 04:00] VITALS: BP 158/72
--- NOTE | 2019-04-09 07:42 | NUR ---
PT IS RESTING IN BED WITH EYES OPEN. RESPIRATIONS ARE EVEN AND UNLABORED. PT REPORTS PAIN TO RIGHT/LEFT NECK. WILL ADDRESS. SEE EMAR. PT DENIES PRESENCE OF N/V/DYSPNEA. BED ALARM IS ON AND WORKING. RIGHT NECK INCISION IS C/D/I. PT DENIES FURTHER NEEDS. BED IS IN THE LOWEST POSITION. CALL LIGHT AND BEDSIDE TABLE ARE WITHIN REACH. SIDE RAILS X 2. WILL CONT TO MONITOR.
[2019-04-09 09:09] VITALS: BP 166/68
[2019-04-09 13:28] VITALS: BP 155/61
--- NOTE | 2019-04-09 15:06 | NUR ---
OT NOTE: PT PERFORMING WELL. IN ROOM AMBULATION WITH LOG HAUL OPERATOR AND OCCASSIONAL LOB UPON INITIALLY GETTING UP; SINK HYGIENE AND TOILETING WITH CGA; ABLE TO BRIT SOCKS WITH MIN ASSIST; AROM EXS FOR STRENGTHENING. JOAQUÍN GOOD, OTR/L
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
[2019-04-09 16:17] VITALS: BP 158/63
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
--- NOTE | 2019-04-09 19:49 | NUR ---
GREETED PATIENT AND INTRODUCED MYSELF HER NURSE. PATIENT IS LAYING IN BED IN SUPINE POSITION. DENIES ANY FURTHER NEEDS AT THIS TIME. CALL LIGHT IN REACH.
[2019-04-09 20:38] VITALS: BP 139/90
--- NOTE | 2019-04-10 02:43 | NUR ---
PATIENT AWAKE AND REQUESTING PRN PAIN MEDICATION FOR PAIN 8/10 NECK AND SHOULDERS.RESPIRATIONS EVEN. NO S/S OF DISTRESS. WILL ADMIN PRN PAIN MEDICATION AND CONTINUE TO MONITOR. CALL LIGHT IN REACH.
[2019-04-10 05:40] VITALS: BP 130/85
--- NOTE | 2019-04-10 07:28 | NUR ---
RESTING IN BED. ALERT AND ORIENTED X 3. LUNGS CLEAR BILATERALLY IN ALL JAMES. HEART SOUNDS S1 AND S2 HEARD IN ALL JAMES. BOWEL SOUNDS ACTIVE X 4. SKIN INTACT WITHOUT REDNESS. EILEEN ALARM ON AND FUNCTIONING. NO IV. REFUSES SCDS. BED LOW. CALL HEATH AND PERSONAL ITEMS IN REACH. DENIES PAIN. DENIES NEEDS. WILL CONTINUE TO MONITOR.
[2019-04-10 08:50] VITALS: BP 160/58
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
--- NOTE | 2019-04-10 10:17 | NUR ---
SITTING IN BED. DENIES PAIN. DENIES NEEDS. WILL CONTINUE TO MONITOR.
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
--- NOTE | 2019-04-10 12:40 | NUR ---
OT NOTE: PT PERFORMED WELL TODAY; AMB INTO HALLWAY WITH MIN ASSIST WITH GAIT BELT AND NO AD; IN ROOM AMBULATION WITH CGA; TRANSFERS WITH MIN ASSIST; UE DRESSING WITH SET UP; MIN ASSIST TO BRIT SOCKS; BED MOB WITH MIN ASSIST JOAQUÍN GOOD OTR/L
[2019-04-10 12:57] VITALS: BP 172/65
--- NOTE | 2019-04-10 14:14 | NUR ---
SITTING IN BED. DENIES PAIN. DENIES NEEDS. WILL CONTINUE TO MONITOR.
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
--- NOTE | 2019-04-10 16:16 | NUR ---
SLEEPING. WILL CONTINUE TO MONITOR.
[2019-04-10 16:58] VITALS: BP 139/43
--- NOTE | 2019-04-10 18:19 | NUR ---
SITTING IN BED. CALL HEATH AND PERSONAL ITEMS IN REACH. DENIES PAIN. DENIES NEEDS.
[2019-04-10 20:22] VITALS: BP 156/67
[2019-04-11 05:26] VITALS: BP 148/65
[2019-04-11 08:42] VITALS: BP 168/71
[2019-04-11 12:37] VITALS: BP 157/55
--- NOTE | 2019-04-11 12:50 | NUR ---
REC'D PT SITTING IN BED SRX2 BED AT LOWEST SETTING, BRAKES ON. PT AOX4 RESP EVEN AND NONLABORED PT DENIES NEEDS AT THIS TIME. WILL CONTINUE TO MONITOR
[2019-04-11 18:21] VITALS: BP 162/60
[2019-04-11 21:43] VITALS: BP 149/63
--- NOTE | 2019-04-12 00:39 | NUR ---
PATENT IN BED RESTING NO IV OR O2 NO S/S OF DISTRESS T.V . ATTENDANT ARCADE LIGHT IN REACH BED LOW.
[2019-04-12 00:56] VITALS: BP 142/65
[2019-04-12 04:00] VITALS: BP 173/66
--- NOTE | 2019-04-12 08:30 | NUR ---
PT REQUSTING ASSITANCE TO THE BEDSIDE COMMODE DONE AT THIS TIME NO OTHER NEEDS EXPRESSED WILL CONTINUE TO MONITOR CL IN REACH
[2019-04-12 09:25] VITALS: BP 155/66
[2019-04-12 12:32] VITALS: BP 147/48
[2019-04-12 17:39] VITALS: BP 178/59
--- NOTE | 2019-04-12 18:46 | NUR ---
I have reviewed this patient and I concur with the Shift Assessment completed by the Licensed Practical Nurse today this shift.
--- NOTE | 2019-04-12 19:30 | NUR ---
PT IS ALERT AND ORIENTED. COMPLAINS OF NECK PAIN. REQUESTS PAIN MEDICATION WHEN AVAILABLE. DENIES FURTHER NEEDS. HAS CALL LIGHT IN HAND. CPOC.
[2019-04-12 20:59] VITALS: BP 124/62
[2019-04-13 05:53] VITALS: BP 123/62
[2019-04-13 09:00] VITALS: BP 155/89
--- NOTE | 2019-04-13 10:26 | NUR ---
PATIENT RESTING WITH NO NEEDS VOICED, ANTICIPATES DISCHARGE LATER TODAY
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
[2019-04-13] MEDS ORDERED: HYDROCODON-ACE1 EA10 PO (13:01)
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
--- NOTE | 2019-04-13 16:57 | NUR ---
OT NOTE: PT COMPLETED DYNAMIC STANDING WITH SPV/MOD I. PT COMPLETED ADL MOB WITH SPV/MOD I. THANK YOU, RICH LOVELL
--- NOTE | 2019-05-14 11:01 | OP ---
PATIENT NAME: SEYMOUR AMIN MEDICAL RECORD: [id number] :42 LOCATION:[place] ADMISSION DATE: SURGEON: CHRISTIE WELLS MD DATE OF OPERATION: 04/03/2019 PREOPERATIVE DIAGNOSIS: Osteophyte formation and disc herniation at C4-C5. POSTOPERATIVE DIAGNOSIS: Osteophyte formation and disc herniation at C4-C5 with cervical radiculopathy. PROCEDURES: Anterior cervical discectomy and fusion at C4-C5 with separate PEEK interbody cage and anterior cervical plate and screws from [facility]. SURGEON: Christie Wells MD DESCRIPTION AND TECHNIQUE: After induction of general endotracheal anesthesia, the patient was positioned supine on the operating table. Neck was prepped and draped in usual sterile fashion. Fluoroscopic x-ray and Schriever dissector localized the C4-C5 interspace. After sterile prep and drape, a transverse skin incision was carried out from the midline to the sternocleidomastoid muscle. The platysma was divided with Bovie cautery. Using blunt and sharp dissection with Metzenbaum scissors, I proceeded in avascular plane medial to the carotid sheath. The C4-C5 interspace was identified with fluoroscopic x-ray and spinal needle. The longus colli muscles were elevated from bodies of C4 and C5 with Bovie cautery. Osteophytes were removed anteriorly with Adson rongeurs. Venango distracting pins were placed in the bodies of C4 and C5. The disc space was incised under distraction. The disc material was removed with pituitary rongeurs and curettes at C4-C5. Osteophytes were drilled away posteriorly with Midas-Gavin drill under microscopic illumination. The posterior longitudinal ligament was removed with Cloward rongeurs. Next, a PEEK interbody cage was placed in the disc space under distraction. Prior to this, it was filled with Estrella bone stem cells. [facility] anterior cervical plate and screws were used to span the C4-C5 interspace. Self-drilling screws were placed through the holes and plate. Locking cams were tightened down over the screw heads. Good position of the hardware was confirmed with fluoroscopic x-ray. Meticulous hemostasis was maintained throughout the wound. Wound was irrigated with copious amounts of Ancef irrigant solution. The platysma was reapproximated with interrupted 3-0 Vicryl suture. The skin was reapproximated with interrupted 3-0 Vicryl suture. A sterile dressing was applied to the wound. The patient was awakened in good condition and taken to recovery. All counts were reported as correct. Estimated blood loss was minimal. TRANSINT:[id number] Voice Confirmation ID: [id number] DOCUMENT ID: [id number] CHRISTIE WELLS MD at 1101 CC: [id number] DICTATION DATE: 05/13/[address] DRIVER: 05/13/192005 [facility] 04/13/[address] [address]
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
== END 2019-04-13 15:06 ==
LOC: D.OPS 05:30 → D.PAN 07:30 → D.ICU 10:24 → D.MS 04-06 15:30 → D.OPS 04-13 15:06
PROVIDERS: Anesthesiology; ATTEND Neurological Surgery
DX: M50.121 Cervical disc disorder at C4-C5 level with radiculopathy (principal); M25.78 Osteophyte, vertebrae; Z01.812 Encounter for preprocedural laboratory examination

== ENCOUNTER → 2019-12-28 13:11 | Outpatient (CLI) | payer MEDICARE, MEDICAID ==
[2019-04-06 09:20] VITALS: BMI 22.1
[~2019-12-28 13:11] MED LIST changes: +HYDROCODON-ACE1 EA10 PO
== END | disposition home or self-care (01) ==
LOC: D.MRI 13:11
PROVIDERS: ATTEND Internal Medicine Geriatric Medicine
DX: M54.12 Radiculopathy, cervical region (principal)